=== PATIENT | male | born 1990 ===

== ENCOUNTER 2020-11-25 20:18 | Emergency (ER) | payer OTHER ==
[~2020-11-25] VITALS: Ht 170.2 cm; Wt 97.1 kg
== END 2020-11-25 23:42 | disposition home or self-care (01) ==
LOC: ER 20:18
DX: S81.811A Laceration without foreign body, right lower leg, initial encounter (principal); W01.198A Fall on same level from slipping, tripping and stumbling with subsequent striking against other object, initial encounter; Y93.02 Activity, running; Y92.828 Other wilderness area as the place of occurrence of the external cause
CPT/HCPCS: 12002; 90471; 90714; 99282-25